=== PATIENT | female | born 1985 ===

== ENCOUNTER 2017-05-16 21:47 | Emergency (ER) | payer MEDICAID ==
--- NOTE | 2017-05-16 22:37 | OBHP ---
Datetime: 05/16/2017 22:29 IP Adm Impression: Term, intrauterine ; No Active Labor IP Admit Plan: Observation/Evaluation; Discharge home Admit Comment, IP Provider: 31yo with IUP at 40.4wks presents here today c/o pelvic discomfort since this afternoon. Denies VB or LOF. care at [facility] clinic. Uncomplicated course a s per patient. TOCO- irregular, FHR- Category 1, Cx-0/0/-3. Assessment: IUP at term Irregular contractions, No active labor. Plan: D/c Home. F/U with clinic tommorrow for scheduling for induction of labor Labor instructions given. Pelvic Type - PN: Adequate Extremities - PN: Normal Abdomen - PN: Normal Back - PN: Normal Breast - PN: Normal Lungs - PN: Normal Heart - PN: Normal Thyroid - PN: Normal Neurologic - PN: Normal HEENT - PN: Normal General - PN: Normal FHR - Baseline A Provider: 140 Membranes, Provider: Intact Gestation - Est Wks by US: 40.4 EGA AdmitDate IP: 40.4 Vital Signs Provider: Reviewed IP Chief Complaint: Maternal discomfort NICHD Variability Prov Fetus A: Moderate 6-25bpm NICHD Accel Fetus A IP Provider: 15X15 FHR Category Provider Fetus A: Category I NICHD Decel Fetus A IP Provider: None Dilatation, Provider: 0 Effacement, Provider: 0 Station, Provider: -3 Genitourinary Exam: Normal DTRs - PN: Normal
[2017-05-16 22:50] VITALS: BMI 27.3
[2017-05-17 02:52] VITALS: BP 138/83; PULSE 75; RESP 18; TEMP 98.1
== END 2017-05-16 22:45 | disposition home or self-care (01) ==
LOC: C.EROB 21:47
DX: O47.1 False labor at or after 37 completed weeks of gestation (principal); Z3A.40 40 weeks gestation of pregnancy

== ENCOUNTER 2017-05-19 08:50 | Inpatient (IN) | payer MEDICAID ==
--- NOTE | 2017-05-19 09:33 | OBADHP ---
Datetime: 05/19/2017 09:27 Admit Comment, IP Provider: at 41weeks came wiuth c/o ctxs started at 5 am, irrg, 03/18, no vb, lof,+fm obhx primi pmh den med pnv alll nkda psh eye surgery soch denies ve /-2 a/p at 40+weeks in labor admit to l_ d npo/ivf labs pain management cont tp and efm snticipate Pelvic Type - PN: Adequate Extremities - PN: Normal Abdomen - PN: Normal Back - PN: Normal Breast - PN: Normal Lungs - PN: Normal Heart - PN: Normal Thyroid - PN: Normal Neurologic - PN: Normal HEENT - PN: Normal General - PN: Normal FHR - Baseline A Provider: 130 Contraction Comments Provider: q1-4 Comments, ACOG Physical Exam: gravid,npon tender ext no kayla,no calf ten IP Hx Assessment: The History has been Reviewed and is Current Vital Signs Provider: Reviewed; Within Normal Limits IP Chief Complaint: Uterine contractions NICHD Variability Prov Fetus A: Moderate 6-25bpm NICHD Accel Fetus A IP Provider: 15X15 FHR Category Provider Fetus A: Category I NICHD Decel Fetus A IP Provider: None Dilatation, Provider: 1 Effacement, Provider: 60 Station, Provider: -3 Genitourinary Exam: Normal DTRs - PN: Normal EGA AdmitDate IP: 41.0 IP Adm Impression: Term, intrauterine ; Intact Membranes IP Admit Plan: Admit to unit; Initiate labor protocol Datetime: 05/16/2017 22:29 Membranes, Provider: Intact Gestation - Est Wks by US: 40.4
[2017-05-19 09:36] VITALS: BMI 32.3
[2017-05-19] MEDS: Lactated Ringer's 1,000 ML IV SCH ×2 (09:50→22:00)
[2017-05-19 10:07] LABS: BASO # 0.2 K/uL (0.0-0.2); BASO % 0.8 % (0.0-2.0); EOS # 0.1 K/uL (0.0-0.7); EOS % 0.3 % (0.0-4.0); HEMATOCRIT 40.7 % (34.0-47.0); LYMPH # 2.4 K/uL (1.0-4.3); LYMPH % 12.4 % (20.0-40.0); MEAN CELL VOLUME 88.9 fL (81.0-99.0); MEAN CORPUSCULAR HEMOGLOBIN 30.5 pg (27.0-31.0); MEAN CORPUSCULAR HGB CONC 34.3 g/dL (33.0-37.0); MEAN PLATELET VOLUME 9.3 fL (7.2-11.7); MONO # 0.5 K/uL (0.0-0.8); MONO % 2.4 % (0.0-10.0); RED CELL DISTRIBUTION WIDTH 13.8 % (11.5-14.5); WHITE BLOOD COUNT 19.6 K/uL (4.8-10.8)
[2017-05-19 10:10] LABS: RBC URINE < 1 /hpf (0-3); URINE BACTERIA RARE (<OCC); URINE BILIRUBIN NEGATIVE (NEGATIVE); URINE BLOOD NEGATIVE (NEGATIVE); URINE CALCIUM OXALATE CRYSTALS RARE /hpf (<OCC); URINE COLOR Yellow (YELLOW); URINE GLUCOSE (UA) NORMAL (Normal); URINE KETONE NEGATIVE (NEGATIVE); URINE LEUKOCYTE ESTERASE NEG Leu/uL (Negative); URINE PROTEIN NEGATIVE (NEGATIVE); URINE UROBILINOGEN NORMAL mg/dL (0.2-1.0); WBC URINE 4 /hpf (0-5)
[2017-05-19 10:26] LABS: CHLORIDE 100 mmol/L (98-107); SODIUM 133 mmol/L (132-148)
[2017-05-19 10:27] LABS: POTASSIUM 4.2 mmol/L (3.6-5.2)
[2017-05-19 10:29] LABS: ALB/GLOB RATIO 1.2 (1.0-2.1); ALKALINE PHOSPHATASE 184 U/L (38-126); ALT/SGPT 18 U/L (9-52); AST/SGOT 24 U/L (14-36); BILIRUBIN,TOTAL 0.6 mg/dL (0.2-1.3); BLOOD UREA NITROGEN 12 mg/dL (7-17); CARBON DIOXIDE 17 mmol/L (22-30); GFR AFRICAN-AMERICAN > 60; TOTAL PROTEIN 7.5 g/dL (6.3-8.3)
[2017-05-19 10:30] LABS: CALCIUM 9.8 mg/dl (8.6-10.4); GLUCOSE,RANDOM 81 mg/dL (65-105)
[2017-05-19] MEDS ORDERED: Nalbuphine 20 mg/ml Inj (1 ml) ONE (10:33)
[2017-05-19] MEDS ORDERED: Nalbuphine 20 mg/ml Inj (1 ml) IVP PRN (10:39)
[2017-05-19] MEDS ORDERED: Bupivacaine 0.125%/FentaNYL 200 ML EPI ONE (15:25)
[2017-05-19] MEDS ORDERED: Oxytocin 30 UNIT 30 UNITS/500 ML BAG IV PRN (18:02)
--- NOTE | 2017-05-19 18:14 | OBPN ---
Datetime: 05/19/2017 18:09 IP Progress Impression: Normal progression of labor IP Procedures: Sterile Vag Exam IP Progress Plan: Continue present management Contraction Comments Provider: q1-4 FHR - Baseline A Provider: 130 IP Progress Note Comment: pt was examined at bed side ve 3/100/-2 start pitocin anticipate Vital Signs Provider: Reviewed; Within Normal Limits NICHD Accel Fetus A IP Provider: 15X15 FHR Category Provider Fetus A: Category I NICHD Variability Prov Fetus A: Moderate 6-25bpm Dilatation, Provider: 3 Effacement, Provider: 100 Station, Provider: -2 Datetime: 05/19/2017 09:27 NICHD Decel Fetus A IP Provider: None Datetime: 05/16/2017 22:29 Membranes, Provider: Intact Gestation - Est Wks by US: 40.4
[2017-05-19] MEDS ORDERED: Oxytocin 30 UNIT 30 UNITS/500 ML BAG IV ONE (20:02)
[2017-05-19] MEDS ORDERED: Lidocaine 2% Inj (20ml) ONE (23:26)
--- NOTE | 2017-05-19 23:36 | OBPN ---
Datetime: 05/19/2017 23:33 IP Progress Impression: Normal progression of labor IP Procedures: Sterile Vag Exam FHR - Baseline A Provider: 130 IP Progress Note Comment: t was examined at bed side ve fd/100/0 cont pitocin anticipate NICHD Variability Prov Fetus A: Moderate 6-25bpm Dilatation, Provider: 10 Effacement, Provider: 100 Station, Provider: 0
[2017-05-19] MEDS ORDERED: Oxytocin 30 UNIT 30 UNITS/500 ML BAG IV SCH (23:45)
[2017-05-20] MEDS: Oxycodone/Acetaminophen 5/325 mg Tab PO PRN ×2 (07:29→16:53)
[2017-05-20 08:46] LABS: MEAN CELL VOLUME 88.8 fL (81.0-99.0)
[2017-05-20 08:54] LABS: HEMATOCRIT 33.7 % (34.0-47.0); MEAN CORPUSCULAR HEMOGLOBIN 30.2 pg (27.0-31.0); MEAN PLATELET VOLUME 8.6 fL (7.2-11.7); RED CELL DISTRIBUTION WIDTH 13.8 % (11.5-14.5); WHITE BLOOD COUNT 20.8 K/uL (4.8-10.8)
[2017-05-20] MEDS: Benzocaine/Menthol 20%-0.5% Topical Spray (60 ml) TOP PRN (10:05)
[2017-05-20] MEDS: Lactated Ringer's 1,000 ML IV SCH (10:05)
[2017-05-21 07:17] LABS: BASO # 0.1 K/uL (0.0-0.2); BASO % 0.3 % (0.0-2.0); EOS # 0.3 K/uL (0.0-0.7); EOS % 1.6 % (0.0-4.0); HEMATOCRIT 33.5 % (34.0-47.0); LYMPH # 3.3 K/uL (1.0-4.3); LYMPH % 16.2 % (20.0-40.0); MEAN CELL VOLUME 89.9 fL (81.0-99.0); MEAN CORPUSCULAR HEMOGLOBIN 30.6 pg (27.0-31.0); MEAN PLATELET VOLUME 8.5 fL (7.2-11.7); MONO % 4.9 % (0.0-10.0); RED CELL DISTRIBUTION WIDTH 14.2 % (11.5-14.5); WHITE BLOOD COUNT 20.2 K/uL (4.8-10.8)
[2017-05-21] MEDS: Oxycodone/Acetaminophen 5/325 mg Tab PO PRN (08:22)
--- NOTE | 2017-05-21 18:12 | OBPPN ---
Datetime: 05/21/2017 11:50 PP Pain Prov: Within normal limits PP Nausea Prov: Denies PP Flatus Prov: Yes PP BM Prov: No PP Breasts Prov: Normal PP Heart Prov: Normal PP Lungs Prov: Normal PP Abdomen/Uterus Prov: Normal PP Lochia Prov: Normal PP Vulva/Perineum Prov: Normal PP CVA Tenderness Prov: Normal PP Extremities Prov: Normal PP C/S Incision Prov: Not Applicable PP Progress Prov: Normal PP Impression Prov: Normal progression PP Plan Prov: Continue present management PP Progress Note Prov: Patient was seen and examined at bedside in the AM. Patient stated she mejia cortez had pain which is a 6/10. She states she is having vaginal pain. She states she is having flatu s but has not had a bowel movement. She denies nausea or vomiting. She states she is breast feeding . Objective: B/P: 108/68 H/H (04/21): 11.4/33.5 H/H on admission 04/20: 11.5/33.7 Awake, Alert and oriented x3 Abdomen: tender, fundus firm at ubilicus Lower Extremities: swollen, non-tender A/P: 31 year old female s/p vaginal delivery day 1 1.) Continue pain management 2.) Advanced to regular diet 3.) Encourage ambulation 4.) Encourage breast feeding Judy Martinez DO PGY-1 Patient examined.Agree with resident exam, assessmnet and plan Vital Signs Provider PP: Reviewed; Within Normal Limits
[2017-05-22] MEDS: Oxycodone/Acetaminophen 5/325 mg Tab PO PRN ×2 (00:13→07:34)
--- NOTE | 2017-05-22 05:58 | OBDCSUM ---
Datetime: 05/22/2017 05:56 Discharged to, Provider: Home Follow up at, Provider: clinic Disch Instr Diet: Regular Discharge Instructions, Provider: Routine instructions given Discharge Diagnosis, Provider: Postterm Discharge Time: 05/22/2017 05:56 Follow up in weeks, Provider: 6 weeks Disch Activity Restrictions: No exercising; No lifting; No driving; Minimize stair-climbing; No sexu al activity; Nothing in vagina - Weiser, tampons, douche Discharge Comment, Provider: go to er if you have fever, pain, heavy bleeding or any other problems Discharge Diagnosis Prov Other: s/p vaginal delivery
[2017-05-22] MEDS ORDERED: Influenza Vaccine 60 mcg/0.5 mL SYR (4YR UP) IM ONE (06:13)
--- NOTE | 2017-05-22 06:17 | OBPPN ---
Datetime: 05/22/2017 05:55 PP Pain Prov: Within normal limits PP Nausea Prov: Denies PP Flatus Prov: Yes PP Heart Prov: Normal PP Lungs Prov: Normal PP Abdomen/Uterus Prov: Normal PP Lochia Prov: Normal PP CVA Tenderness Prov: Normal PP Extremities Prov: Normal PP C/S Incision Prov: Not Applicable PP Progress Prov: Normal PP Impression Prov: Normal progression PP Plan Prov: Discharge PP Progress Note Prov: S-patient denies any complaints.tolerating diet.ambulating and vodiing withou t difficulty.breast feeding O-VSS Afebrile Fundus firm and below umbilcus extremities no calf tenderness episiotomy site intact; no idnuration or swelling A/P Patient s/p vaginal delivery ppd 2 doing well.repeat cbc today.if wbc stable then discharge to day -follow up in clinic in 6 weeks Vital Signs Provider PP: Reviewed; Within Normal Limits
[2017-05-22 07:12] LABS: BASO # 0.1 K/uL (0.0-0.2); BASO % 0.3 % (0.0-2.0); EOS # 0.4 K/uL (0.0-0.7); EOS % 2.4 % (0.0-4.0); HEMATOCRIT 31.9 % (34.0-47.0); LYMPH # 3.1 K/uL (1.0-4.3); LYMPH % 17.7 % (20.0-40.0); MEAN CELL VOLUME 90.2 fL (81.0-99.0); MEAN CORPUSCULAR HEMOGLOBIN 30.3 pg (27.0-31.0); MEAN CORPUSCULAR HGB CONC 33.6 g/dL (33.0-37.0); MEAN PLATELET VOLUME 8.1 fL (7.2-11.7); MONO # 0.8 K/uL (0.0-0.8); MONO % 4.3 % (0.0-10.0); RED CELL DISTRIBUTION WIDTH 14.7 % (11.5-14.5); WHITE BLOOD COUNT 17.5 K/uL (4.8-10.8)
[2017-05-22] MEDS: Benzocaine/Menthol 20%-0.5% Topical Spray (60 ml) TOP PRN (07:34)
[2017-05-22 08:30] VITALS: RESP 18
[2017-05-22 17:50] VITALS: BP 112/66; PULSE 102; TEMP 98.3; O2SAT 100
== END 2017-05-22 13:48 | disposition home or self-care (01) | DRG 775 ==
LOC: C.EROB 08:50 → C.4D 09:36 → C.4M 05-20 04:01
PROVIDERS: ADMIT Obstetrics & Gynecology; ATTEND Obstetrics & Gynecology
PROC: 0W8NXZZ Division of Female Perineum, External Approach (ICD-10-PCS; principal; 2017-05-19)
PROC: 10D07Z8 Extraction of Products of Conception, Other, Via Natural or Artificial Opening (ICD-10-PCS; 2017-05-19)
DX: O48.0 Post-term pregnancy (principal); Z3A.41 41 weeks gestation of pregnancy; Z37.0 Single live birth